=== PATIENT | female | born 1975 | race Caucasian/White ===

== ENCOUNTER → 2016-12-09 | Outpatient (CLI) | payer OTHER ==
[~2016-12-09] MED LIST: ADVIN25/60 INH; EST1 PO; LSN/2025 PO; PROG1CAP PO
== END | disposition home or self-care (01) ==
LOC: C.PAPS 12:31
PROVIDERS: ATTEND Obstetrics & Gynecology
DX: N91.1 Secondary amenorrhea (principal)

== ENCOUNTER → 2017-03-14 | Outpatient (CLI) | payer OTHER ==
--- NOTE | 2017-03-17 12:29 | MAMMOGRAPHY REPORT ---
BILATERAL DIGITAL SCREENING MAMMOGRAM TOMOSYNTHESIS WITH CAD: 03/14/2017 TECHNIQUE: Breast tomosynthesis in addition to standard 2D mammography was performed. Current study was also evaluated with a Computer Aided Detection (CAD) system. COMPARISON: Comparison is made to exams dated: 10/31/2015 ultrasound, 05/13/2016 mammogram, 10/31/2015 mammogram, and 10/25/2015 mammogram - [facility]. BREAST COMPOSITION: There are scattered areas of fibroglandular density in both breasts. FINDINGS: No suspicious masses, calcifications, or areas of architectural distortion are noted in ei ther breast. There has been no significant interval change compared to prior exams. Left breast asym metries are stable. Scattered bilateral benign-appearing calcifications are not significantly change d. IMPRESSION: ACR BI-RADS CATEGORY 2: BENIGN There is no mammographic evidence of malignancy. A 1 year screening mammogram is recommended. The pa tient will receive written notification of the results. Approximately 10% of breast cancers are not detected with mammography. A negative mammographic report should not delay biopsy if a clinically suggestive mass is present. Reina Catherine M.D. /:03/14/2017 15:19:27 Pouncing Machine Operator: Frida TAVARES(Pelon)(M), [facility] letter sent: Normal 1/2 BI-RADS Code: ACR BI-RADS Category 2: Benign
== END | disposition home or self-care (01) ==
LOC: C.MAMM 09:28
PROVIDERS: ATTEND Obstetrics & Gynecology
DX: Z12.31 Encounter for screening mammogram for malignant neoplasm of breast (principal)

== ENCOUNTER → 2018-03-18 | Outpatient (CLI) | payer OTHER ==
[~2018-03-18] MED LIST changes: +LISI20TA11 PO; -LSN/2025 PO
--- NOTE | 2018-03-18 13:37 | MAMMOGRAPHY REPORT ---
BILATERAL DIGITAL SCREENING MAMMOGRAM TOMOSYNTHESIS WITH CAD: 03/18/2018 CLINICAL HISTORY: Routine screening. Patient has no complaints. TECHNIQUE: The study was acquired using full field digital technology and interpreted from soft copy. Breast tomosynthesis in addition to standard 2D mammography was performed. Current study was also ev aluated with a Computer Aided Detection (CAD) system. COMPARISON: Comparison is made to exams dated: 03/14/2017 mammogram, 05/13/2016 mammogram, 10/31/2015 ma mmogram, 10/25/2015 mammogram, and 10/31/2015 ultrasound - [facility]. BREAST COMPOSITION: There are scattered areas of fibroglandular density in both breasts. FINDINGS: There are stable asymmetries in the upper outer left breast. Scattered benign-appearing ca lcifications. No suspicious mass, architectural distortion or cluster of microcalcifications is seen. IMPRESSION: ACR BI-RADS CATEGORY 1: NEGATIVE There is no mammographic evidence of malignancy. A 1 year screening mammogram is recommended.( [id number]) The patient will receive written notification of the results. Some breast cancers are not detected with mammography. A negative mammographic report should not antonino y biopsy if a clinically suggestive mass is present. Clementine Ernst M.D. ay/:03/18/2018 08:36:36 Underground Roof Bolter: RT Jayant(Pelon)(M), [facility] letter sent: Normal 1/2 BI-RADS Code: ACR BI-RADS Category 1: Negative
== END | disposition home or self-care (01) ==
LOC: C.MAMM 07:58
PROVIDERS: ATTEND Obstetrics & Gynecology
DX: Z12.31 Encounter for screening mammogram for malignant neoplasm of breast (principal)